=== PATIENT | male | born 1975 | race Caucasian/White ===

== ENCOUNTER → 2018-08-06 | Outpatient (CLI) | payer MEDICAID ==
[~2018-08-06] MED LIST: CARV3.1262 PO; DIGO-44 PO; FURO20TA4 PO; PHEN300C6 PO; SACU1TAB PO; SPIR25TA6 PO
== END | disposition home or self-care (01) ==
LOC: SHCH 12:56
PROVIDERS: ATTEND Internal Medicine Cardiovascular Disease
DX: I42.0 Dilated cardiomyopathy (principal); Z72.89 Other problems related to lifestyle
CPT/HCPCS: 93306

== ENCOUNTER → 2021-03-30 | Outpatient (CLI) | payer MEDICAID | END | disposition home or self-care (01) | LOC: SHCH 11:31 | PROVIDERS: ATTEND Internal Medicine Cardiovascular Disease | DX: R55 Syncope and collapse (principal); I42.0 Dilated cardiomyopathy | CPT/HCPCS: 93306; 93356 ==